=== PATIENT | male | born 1995 | race Caucasian/White ===

== ENCOUNTER 2018-05-31 03:28 | Emergency (ER) | payer OTHER ==
[~2018-05-31] VITALS: Ht 175.3 cm; Wt 77.1 kg
[2018-05-31 03:36] VITALS: BP 142/95
[2018-05-31] MEDS ORDERED: NAPROSYN500 MG PO (03:48)
== END 2018-05-31 04:11 | disposition home or self-care (01) ==
LOC: ER 03:28
DX: M25.512 Pain in left shoulder (principal)